=== PATIENT | male | born 1990 | race Caucasian/White ===

== ENCOUNTER 2017-06-16 07:08 | Day surgery (SDC) | payer BC, OTHER ==
--- NOTE | 2017-06-16 07:13 | ER Report ---
History and Physical Time Seen By MD: 07:12 HPI/ROS CHIEF COMPLAINT: Intermittent Fevers, fatigue for several months HISTORY OF PRESENT ILLNESS: Patient is a 27-year-old male here with complaints of intermittent low-grade fevers, persistent fatigue for several months and elevated LFTs and uric acid levels on lab screening completed last week. Patient is concerned as symptoms findings may indicate an underlying process. Patient denies weight loss, chest pain, trouble breathing, abdominal pain, nausea, vomiting, lower extremity edema. he does note a prior sore throat which is improved. Patient is well-appearing on exam and in no acute distress. Patient admits to occasional ETOH use but not on a regular basis. REVIEW OF SYSTEMS: Constitutional: + intermittent fevers and fatigue, no chills. Eyes: No discharge. ENT: + prior history of sore throat. Cardiovascular: No chest pain, no palpitations. Respiratory: No cough, no shortness of breath. Gastrointestinal: No abdominal pain, no vomiting. Genitourinary: No hematuria. Musculoskeletal: No back pain. Skin: No rashes. Neurological: No headache. Allergies: Coded Allergies: No Known Drug Allergies (Verified , 06/16/17) Home Meds Discontinued Reported Medications [None] No Conflict Check, 0 Refills 02/01/10 Hx Alcohol Use: Yes (RARE) Constitutional Vital Sign - Last 24 Hours 06/16/17 06/16/17 06/16/17 06/16/17 07:13 07:14 07:30 08:00 Temp 97.5 Pulse 77 Resp 20 B/P (MAP) 122/68 122/68 (86) 119/73 (88) 110/71 (84) Pulse Ox 99 O2 Delivery Room Air 06/16/17 06/16/17 06/16/17 06/16/17 08:08 08:13 08:30 08:43 Pulse 81 52 68 B/P (MAP) 110/56 (74) Pulse Ox 94 95 93 06/16/17 06/16/17 06/16/17 06/16/17 09:12 09:30 09:43 10:00 Pulse 57 B/P (MAP) 111/65 (80) 111/67 (82) 117/69 (85) Pulse Ox 95 Physical Exam General Appearance: The patient is alert,no signs of toxicity. NAD Eyes: Pupils equal and round no pallor or injection. ENT, Mouth: Mucous membranes are moist. Respiratory: There are no retractions, lungs are clear to auscultation. Cardiovascular: Regular rate and rhythm. Gastrointestinal: Abdomen is soft and non tender, no masses, bowel sounds normal. Neurological: No focal deficits, gait normal Skin: Warm and dry, no rashes. Musculoskeletal: Extremities are nontender, nonswollen and have full range of motion. DIFFERENTIAL DIAGNOSIS: After history and physical exam differential diagnosis was considered for adult fever including but not limited to viral syndromes including mono, urinary tract infection and sepsis. Medical Decision Making Data Points Result Diagram: 06/16/17 0725 06/16/1725 Laboratory Hematology Test 06/16/17 07:25 06/16/17 09:45 06/16/17 10:10 Red Blood Count 5.49 M/uL (4.00-5.60) Mean Corpuscular Volume 86.2 fL (80.0-96.0) Mean Corpuscular Hemoglobin 29.9 pg (26.0-33.0) Mean Corpuscular Hemoglobin Concent 34.7 g/dL (32.0-36.0) Red Cell Distribution Width 12.9 % (11.5-14.5) Mean Platelet Volume 6.9 fL (7.2-11.1) Neutrophils (%) (Auto) 36.8 % (39.4-72.5) Lymphocytes (%) (Auto) 48.2 % (17.6-49.6) Monocytes (%) (Auto) 12.0 % (4.1-12.4) Eosinophils (%) (Auto) 1.9 % (0.4-6.7) Basophils (%) (Auto) 1.1 % (0.3-1.4) Nucleated RBC Relative Count (auto) 0.1 /100WBC Neutrophils # (Auto) 1.6 K/uL (2.0-7.4) Lymphocytes # (Auto) 2.1 K/uL (1.3-3.6) Monocytes # (Auto) 0.5 K/uL (0.3-1.0) Eosinophils # (Auto) 0.1 K/uL (0.0-0.5) Basophils # (Auto) 0.0 K/uL (0.0-0.1) Nucleated RBC Absolute Count (auto) 0.01 K/uL Sodium Level 142 mmol/L (137-145) Potassium Level 4.2 mmol/L (3.5-5.0) Chloride Level 102 mmol/L (98-107) Carbon Dioxide Level 24 mmol/L (22-30) Blood Urea Nitrogen 17 mg/dl (9-21) Creatinine 1.00 mg/dl (0.66-1.25) Glomerular Filtration Rate Calc > 60.0 Random Glucose 95 mg/dl (75-110) Uric Acid 7.2 mg/dl (3.5-8.5) Calcium Level 9.6 mg/dl (8.4-10.2) Total Bilirubin 1.9 mg/dl (0.2-1.3) Aspartate Amino Transf (AST/SGOT) 59 U/L (0-35) Alanine Aminotransferase (ALT/SGPT) 123 U/L (0-56) Alkaline Phosphatase 68 U/L (0-126) Total Protein 8.4 gm/dl (6.3-8.2) Albumin 4.8 g/dl (3.5-5.0) Triglycerides Level 77 mg/dl (0-250) Cholesterol Level 157 mg/dl (75-200) LDL Cholesterol 99 mg/dl VLDL Cholesterol 15 mg/dl HDL Cholesterol 43 mg/dl Percent HDL Cholesterol 27.0 % Cholesterol Ratio (LDL/HDL) 2.30 Cholesterol/HDL Ratio 3.7 Lipase 100 U/L (23-300) Monoscreen Negative (NEGATIVE) Urine Color Straw Urine Clarity Clear Urine pH 7.0 pH (4.8-9.5) Urine Specific [place] 1.044 Urine Protein Negative mg/dL (NEGATIVE) Urine Glucose (UA) Negative mg/dL (NEGATIVE) Urine Ketones Negative mg/dL (NEGATIVE) Urine Blood Negative (NEGATIVE) Urine Nitrite Negative (NEGATIVE) Urine Bilirubin Negative (NEGATIVE) Urine Urobilinogen Negative mg/dL (0.2-1.9) Urine Leukocyte Esterase Negative (NEGATIVE) Urine RBC <1 /HPF (0-2/HPF) Urine WBC None /HPF (0-5/HPF) Urine Squamous Epithelial Cells None /LPF (</=FEW) Urine Bacteria Negative /HPF (NONE-FEW) Urine Mucus None /HPF (NONE-FEW) Chemistry Test 06/16/17 07:25 06/16/17 09:45 5/12/18 10:10 White Blood Count 4.4 k/uL (4.5-11.0) Red Blood Count 5.49 M/uL (4.00-5.60) Hemoglobin 16.4 g/dL (14.0-18.0) Hematocrit 47.3 % (42.0-52.0) Mean Corpuscular Volume 86.2 fL (80.0-96.0) Mean Corpuscular Hemoglobin 29.9 pg (26.0-33.0) Mean Corpuscular Hemoglobin Concent 34.7 g/dL (32.0-36.0) Red Cell Distribution Width 12.9 % (11.5-14.5) Platelet Count 225 K/uL (150-450) Mean Platelet Volume 6.9 fL (7.2-11.1) Neutrophils (%) (Auto) 36.8 % (39.4-72.5) Lymphocytes (%) (Auto) 48.2 % (17.6-49.6) Monocytes (%) (Auto) 12.0 % (4.1-12.4) Eosinophils (%) (Auto) 1.9 % (0.4-6.7) Basophils (%) (Auto) 1.1 % (0.3-1.4) Nucleated RBC Relative Count (auto) 0.1 /100WBC Neutrophils # (Auto) 1.6 K/uL (2.0-7.4) Lymphocytes # (Auto) 2.1 K/uL (1.3-3.6) Monocytes # (Auto) 0.5 K/uL (0.3-1.0) Eosinophils # (Auto) 0.1 K/uL (0.0-0.5) Basophils # (Auto) 0.0 K/uL (0.0-0.1) Nucleated RBC Absolute Count (auto) 0.01 K/uL Glomerular Filtration Rate Calc > 60.0 Uric Acid 7.2 mg/dl (3.5-8.5) Calcium Level 9.6 mg/dl (8.4-10.2) Total Bilirubin 1.9 mg/dl (0.2-1.3) Aspartate Amino Transf (AST/SGOT) 59 U/L (0-35) Alanine Aminotransferase (ALT/SGPT) 123 U/L (0-56) Alkaline Phosphatase 68 U/L (0-126) Total Protein 8.4 gm/dl (6.3-8.2) Albumin 4.8 g/dl (3.5-5.0) Triglycerides Level 77 mg/dl (0-250) Cholesterol Level 157 mg/dl (75-200) LDL Cholesterol 99 mg/dl VLDL Cholesterol 15 mg/dl HDL Cholesterol 43 mg/dl Percent HDL Cholesterol 27.0 % Cholesterol Ratio (LDL/HDL) 2.30 Cholesterol/HDL Ratio 3.7 Lipase 100 U/L (23-300) Monoscreen Negative (NEGATIVE) Urine Color Straw Urine Clarity Clear Urine pH 7.0 pH (4.8-9.5) Urine Specific [place] 1.044 Urine Protein Negative mg/dL (NEGATIVE) Urine Glucose (UA) Negative mg/dL (NEGATIVE) Urine Ketones Negative mg/dL (NEGATIVE) Urine Blood Negative (NEGATIVE) Urine Nitrite Negative (NEGATIVE) Urine Bilirubin Negative (NEGATIVE) Urine Urobilinogen Negative mg/dL (0.2-1.9) Urine Leukocyte Esterase Negative (NEGATIVE) Urine RBC <1 /HPF (0-2/HPF) Urine WBC None /HPF (0-5/HPF) Urine Squamous Epithelial Cells None /LPF (</=FEW) Urine Bacteria Negative /HPF (NONE-FEW) Urine Mucus None /HPF (NONE-FEW) Urinalysis Test 06/16/17 10:10 Urine Color Straw Urine Clarity Clear Urine pH 7.0 pH (4.8-9.5) Urine Specific [place] 1.044 Urine Protein Negative mg/dL (NEGATIVE) Urine Glucose (UA) Negative mg/dL (NEGATIVE) Urine Ketones Negative mg/dL (NEGATIVE) Urine Blood Negative (NEGATIVE) Urine Nitrite Negative (NEGATIVE) Urine Bilirubin Negative (NEGATIVE) Urine Urobilinogen Negative mg/dL (0.2-1.9) Urine Leukocyte Esterase Negative (NEGATIVE) Urine RBC <1 /HPF (0-2/HPF) Urine WBC None /HPF (0-5/HPF) Urine Squamous Epithelial Cells None /LPF (</=FEW) Urine Bacteria Negative /HPF (NONE-FEW) Urine Mucus None /HPF (NONE-FEW) Microbiology Microbiology Date/Time Source Procedure Growth Status 06/16/17 07:25 Blood Blood Culture - Preliminary NO GROWTH SO FAR, SET LATE. REINCUBATED Resulted EKG/Imaging Imaging GALLBLADDER HISTORY: abnormal liver enzymes COMPARISON: None. FINDINGS: Gallbladder: No shadowing gallstones. No gallbladder wall thickening. Negative sonographic Sanchez's sign.. Bile ducts: There is no biliary ductal dilation with the CBD measuring 2 mm. Liver: Negative. Pancreas: Negative. Right kidney: Negative. Upper abdominal aorta and IVC: Patent. Ascites: None visualized. Other findings: None significant IMPRESSION: 1. Normal ABDOMEN/PELVIS WITH CONTRAST HISTORY: Abdominal pain TECHNIQUE: Axial images were obtained through the abdomen and pelvis with intravenous contrast . One of the following dose optimization techniques was utilized in the performance of this exam: automated exposure control; adjustment of the mA and/or kv according to patient size; or use of iterative reconstruction technique. Specific details can be referenced in the facility's radiology CT exam operational policy. CONTRAST: 100 cc of Isovue-370 COMPARISON: None. FINDINGS: Visualized lung bases: Negative. Hepatobiliary: Negative. Spleen: Negative. Adrenals: Negative. Pancreas: Negative. Kidneys/ureters/bladder: Negative. Bowel/peritoneum/mesentery: Small appendicolith. Distal to the appendicolith the appendix is dilated measuring 8 mm with mild enhancement of the wall and minimal stranding of adjacent fat consistent with appendicitis. No free air, bowel obstruction or abscess. Vessels: Negative. Lymph nodes: Negative. Pelvic genitourinary: Negative. Bones/body wall: Negative. Other findings: None significant IMPRESSION: 1. Distal appendicolith with mild dilatation of the tip of the appendix, mild enhancement of the wall and mild stranding of adjacent fat concerning for uncomplicated appendicitis. ED Course/Re-evaluation ED Course Patient is a 27-year-old male here with complaints of fever and fatigue for the past several months with aberrant lab findings last week prompting evaluation. She was well-appearing on exam and in no acute distress. Asymptomatic recently loss, PO intolerance, dysuria, LE edema, rashes. Repeat labs today showed mild transaminitis. Patient does admit to occasional ETOH use but not to the level that would likely cause this transaminitis. RUQ US showed no acute findings. Blood culture pending. LFTs seem to be improving since last week. Patient's clinical manifestations do not seem congruent with hepatitis as the LFTs are not markedly elevated, patient does not fit the clinical syndrome pattern expected with hepatitis A. Hepatitis B and C are much lower on the differential based on patient's history and clinical symptomatology. Hepatitis send out panels were collected and sent. CT AP showed findings concerning for appendicolith with surrounding inflammation concerning for uncomplicated appendicitis. I discussed the patent with Dr. Christy Maya from Surgery who evaluated the patient and subsequently admitted for further treatment. Patient remained HD stable during course. Transaminitis to be followed up in the outpatient setting. . Decision to Disposition Date: June 16, 2017 Decision to Disposition Time: 10:49 Depart Departure Latest Vital Signs Vital Signs Date Time Temp Pulse Resp B/P (MAP) Pulse Ox O2 Delivery O2 Flow Rate FiO2 06/16/17 10:00 117/69 (85) 06/16/17 09:43 57 95 06/16/17 07:13 97.5 20 Room Air Impression: Primary Impression: Appendicitis Additional Impressions: Transaminitis Fatigue Condition: Condition Unchanged Disposition: ADMIT FROM ER TO OR Referrals: WALESKA STRAUSS MD (PCP) New Scripts No Active Prescriptions or Reported Meds Patient Instructions: Fatigue (ED), Fever in Adults (ED) Additional Instructions: You were evaluated today for fevers and fatigue which has been present for the past several months. Your liver enzyme tests seem to be improving. Your ultrasound showed no acute findings. CT imaging showed no acute masses or signs of infection. Please return promptly if you develop worsening fevers, worsening fatigue, nausea, vomiting, abdominal pain, yellow skin, diffuse itching. Please follow-up with your family doctor next week. You may need to be evaluated by gastroenterology for persistent elevated liver enzymes. Problem Qualifiers Primary Impression: Appendicitis Appendicitis type: acute appendicitis MARLENY RATLIFF DO June 16, 2017 07:13
[2017-06-16 07:44] LABS: PLATELET COUNT, AUTOMATED 225 K/uL (150-450)
[2017-06-16] MEDS ORDERED: IOPAMIDOL 76% 100 ML INFUS BTL 100 ML ONE (08:59)
[2017-06-16] MEDS ORDERED: NS 0.9% 150 ML BAG 150 ML ONE (08:59)
--- NOTE | 2017-06-16 09:15 | RADIOLOGY IMAGING REPORT ---
FACILITY: [facility] PATIENT NAME: Prieto Zamora : 1990 MR: [id number] V: [id number] EXAM DATE: ORDERING PHYSICIAN: MARLENY RATLIFF TECHNOLOGIST: Location: [facility] - [place] Patient: Prieto Zamora : 1990 Visit/Account:[id number] Date of Sevice: 06/16/2017 GALLBLADDER HISTORY: abnormal liver enzymes COMPARISON: None. FINDINGS: Gallbladder: No shadowing gallstones. No gallbladder wall thickening. Negative sonographic Sanchez's s ign.. Bile ducts: There is no biliary ductal dilation with the CBD measuring 2 mm. Liver: Negative. Pancreas: Negative. Right kidney: Negative. Upper abdominal aorta and IVC: Patent. Ascites: None visualized. Other findings: None significant IMPRESSION: 1. Normal Report Dictated By: Berto Thomas MD at 06/16/2017 9:09 AM Report E-Signed By: Berto Thomas MD at 06/16/2017 9:11 AM WSN:[id number]
--- NOTE | 2017-06-16 09:33 | RADIOLOGY IMAGING REPORT ---
[place] [facility] [place] Prieto Zamora : 1990 MR: [id number] V: [id number] EXAM DATE: ORDERING PHYSICIAN: MARLENY RATLIFF TECHNOLOGIST: Location: [facility] - [place] Patient: Prieto Zamora : 1990 Visit/Account:[id number] Date of Sevice: 06/16/2017 ABDOMEN/PELVIS WITH CONTRAST HISTORY: Abdominal pain TECHNIQUE: Axial images were obtained through the abdomen and pelvis with intravenous contrast . One of the following dose optimization techniques was utilized in the performance of this exam: automate d exposure control; adjustment of the mA and/or kv according to patient size; or use of iterative rec onstruction technique. Specific details can be referenced in the facility's radiology CT exam operati onal policy. CONTRAST: 100 cc of Isovue-370 COMPARISON: None. FINDINGS: Visualized lung bases: Negative. Hepatobiliary: Negative. Spleen: Negative. Adrenals: Negative. Pancreas: Negative. Kidneys/ureters/bladder: Negative. Bowel/peritoneum/mesentery: Small appendicolith. Distal to the appendicolith the appendix is dilated measuring 8 mm with mild enhancement of the wall and minimal stranding of adjacent fat consistent wi th appendicitis. No free air, bowel obstruction or abscess. Vessels: Negative. Lymph nodes: Negative. Pelvic genitourinary: Negative. Bones/body wall: Negative. Other findings: None significant IMPRESSION: 1. Distal appendicolith with mild dilatation of the tip of the appendix, mild enhancement of the wall and mild stranding of adjacent fat concerning for uncomplicated appendicitis. Results were called to MARLENY RATLIFF at 06/16/2017 9:22 AM. Report Dictated By: Berto Thomas MD at 06/16/2017 9:15 AM Report E-Signed By: Berto Thomas MD at 06/16/2017 9:28 AM WSN:[id number]
[2017-06-16] MEDS ORDERED: PIPERACILLIN/TAZO*3.375GM VIAL 3.375 GM in NS(*) 0.9% 100 ML ADDVANT BAG 100 ML IVPB ONE (10:15)
[2017-06-16] MEDS ORDERED: NORMOSOL R SOLN(*) 1000 ML BAG 1,000 ML IV ONE (10:20)
[2017-06-16] MEDS ORDERED: FAMOTIDINE(*) 20MG/50ML PREMIX 50 ML IVPB ONE (10:20)
[2017-06-16] MEDS ORDERED: MIDAZOLAM 2 MG/2 ML VIAL ONE (10:30)
--- NOTE | 2017-06-16 10:31 | Gen Surgery History & Physical ---
History of Present Illness Chief Complaint Fatigue, intermittent fevers History of Present Illness 27 year old otherwise healthy male who reports onset of intermittent headaches with associated fatigue since taking a trip to [place] about a month ago. He has also had some fevers at home measuring between 100-101F. Denies any GI symptoms, no abdominal pain, no vomiting, occasional nausea with bad headache. Normal bowel movements, no blood, no diarrhea. Denies camping or drinking non- potable water. He had bloodwork done at a recent health fair, and had incidentally noted elevation in his transaminases. Denies jaundice. No history of IBD. No previous surgeries. No joint/muscle pain. Works out regularly. History Unable To Obtain Past Medical: No known medical problems Problems: Home Meds Discontinued Reported Medications [None] No Conflict Check, 0 Refills 02/01/10 Allergies: Coded Allergies: No Known Drug Allergies (Verified , 06/16/17) Review of Systems Constitutional: Fever, No Weight Loss, No Chills, No Night Sweats Neurological: Other (Headache) Eyes: No Vision Change Cardiovascular: No Chest Pain, No Palpitations Respiratory: No Shortness of Breath Gastrointestinal: Nausea (With headache), No Vomiting, No Diarrhea, No Constipation, No Early Satiety, No Hematochezia, No Melena, No Abdominal Pain Genitourinary: No Dysuria Musculoskeletal: No Pain Exam General Appearance: Alert, Awake, No Acute Distress, Afebrile Neuro: No Gross deficits Eyes: PERRLA ENT: Moist Mucous Membranes Cardiovascular: Regular Rate and Rhythm Respiratory: No Respiratory Distress Chest: No Tenderness GI: Abd Soft and Non-Tender, Other (No rebound or guarding) Psych: Alert & Oriented X3, Appropriate Mood & Affect Medical Decision Making Data Points Result Diagram: 06/16/17 0725 06/16/17 0725 EKG / Imaging Imaging Abdominal ultrasound: normal CT Abd/Pelvis: appendicolith noted in the distal appendix with early evidence of inflammatory changes and dilation to 8mm Pre-Admit Course Medical Record Review: Yes Assessment and Plan Problems: (1) Appendicitis Onset Date: ~ 06/16/2017 Status: Acute Assessment & Plan: 27year old male with ~one month history of fatigue, fever, and headache. Recent laboratory values indicate transaminitis. 1. Transaminitis - LFT's downtrending from previous values. Abd Ultrasound normal. Would recommend continued outpatient monitoring of LFT's and consider consultation with GI. 2. Appendicolith/Early appendicitis - I have recommended laparoscopic appendectomy. The risks, benefits, and alternatives of the procedure have been explained to the patient and informed consent obtained. Patient understands potential for normal appendix, injury to surrounding structures, bleeding and infection. Zosyn system administration manager to OR. Last ate at 10pm. All questions answered. Condition Stable Time Spent: > 30 min Venous Thromboembolism VTE Risk Patient's VTE Risk: Low Antithrombotics Is Pt On Any Antithrombotics?: No Problem Qualifiers (1) Appendicitis: Appendicitis type: acute appendicitis NADINE ROWELL MD June 16, 2017 09:47
[2017-06-16] MEDS ORDERED: fentaNYL CITR 250 MCG/5 ML AMP ONE (10:33)
[2017-06-16] MEDS ORDERED: LIDOCAINE MPF 1% 5 ML VIAL ONE (10:35)
[2017-06-16] MEDS ORDERED: ONDANSETRON 4 MG/2 ML VIAL ONE (10:35)
[2017-06-16] MEDS ORDERED: DEXAMETHASONE SOD PHOS 10MG/ML ONE (10:35)
[2017-06-16] MEDS ORDERED: PROPOFOL EMUL(*) 10MG/ML 20 ML 80 ML ONE (10:35)
[2017-06-16] MEDS ORDERED: REMIFENTANIL HCL 1 MG VIAL ONE (10:36)
[2017-06-16] MEDS ORDERED: SUGAMMADEX SOD 200 MG/2 ML SDV ONE (11:00)
--- NOTE | 2017-06-16 11:40 | Post Operative Note ---
Operative Note - ENT Operative Day Date: June 16, 2017 Time: 11:39 Physicians Surgeon: Christy Rowell MD Anesthesia: General endotracheal Diagnosis Pre-Op Diagnosis: Acute appendicitis Post-Op Diagnosis: Same Procedure Findings: Mildly injected distal appendix Procedure(s): Laparoscopic appendectomy Specimen Removed:(Maybe N/A): Appendix Complications: None apparent Fluids Estimated Blood Loss: <5mL CHRISTY ROWELL MD June 16, 2017 11:40
--- NOTE | 2017-06-16 11:45 | Short(Outpt) Discharge Summary ---
Discharge Summary Reason for Hosp/Final Diag: (1) Appendicitis Onset Date: ~ 06/16/2017 Status: Acute Hospital Course & Plan: 27year old male with ~one month history of fatigue, fever, and headache. Recent laboratory values indicate transaminitis. 1. Transaminitis - LFT's downtrending from previous values. Abd Ultrasound normal. Would recommend continued outpatient monitoring of LFT's and consider consultation with GI. 2. Appendicolith/Early appendicitis - I have recommended laparoscopic appendectomy. The risks, benefits, and alternatives of the procedure have been explained to the patient and informed consent obtained. Patient understands potential for normal appendix, injury to surrounding structures, bleeding and infection. Zosyn options trader to OR. Last ate at 10pm. All questions answered. Post op: Patient recovered in PACU. Stable for discharge to home. Departure Discharge to: Home Discharge Instructions Home Meds Discontinued Reported Medications [None] No Conflict Check, 0 Refills 02/01/10 Diet: Regular Activity: No Heavy Lifting Special Instructions: No heavy lifting of anything more than 20lb for the next 4-6 weeks. Copies to: WALESKA GONZALEZ MD Problem Qualifiers (1) Appendicitis: Appendicitis type: acute appendicitis NADINE ROWELL MD June 16, 2017 11:45
[2017-06-16] MEDS ORDERED: DOCU-416 PO (11:48)
[2017-06-16] MEDS ORDERED: OXYC-865 PO (11:48)
[2017-06-16 12:52] VITALS: BP 116/66
[2017-06-16 12:54] VITALS: BP 112/67
--- NOTE | 2017-06-16 13:24 | OPERATIVE REPORT 1 ---
EVENT DATE: June 16, 2017 SURGEON: Christy Maya MD ANESTHESIOLOGIST: Noel Allred MD ANESTHESIA: General endotracheal tube. PREOPERATIVE DIAGNOSIS Acute appendicitis. POSTOPERATIVE DIAGNOSIS Acute appendicitis. PROCEDURE PERFORMED Laparoscopic appendectomy. ESTIMATED BLOOD LOSS Less than 5 mL. SPECIMENS Appendix. COMPLICATIONS None apparent. INDICATIONS FOR PROCEDURE The patient is a 27-year-old male with a one-month history of intermittent fevers and fatigue with associated headache. He presented to the Emergency Department today secondary to persistent symptoms and underwent workup which consisted of CT imaging that demonstrated a fecalith in his distal appendix with associated mild inflammatory changes. I discussed with the patient that while I did not feel that symptoms he had been experiencing over the last month were necessarily related to his appendix, I did believed that laparoscopic appendectomy was indicated to prevent progression of the inflammation and/or the potential for perforated appendicitis. The risks, benefits, and alternatives for the procedure were explained to the patient, and informed consent was obtained. DETAILS OF THE PROCEDURE Patient was brought to the operating room. He was laid in the supine position. Bilateral sequential compression devices were placed on his lower extremities , and general endotracheal tube anesthesia was induced without complication. The patient was then positioned, prepped, and draped in the usual sterile fashion. A timeout was performed confirming the patient, the procedure, and the administration of preoperative antibiotics with Zosyn IV. Operation commenced with gaining access to the patient's abdomen in the left upper quadrant using a Veress needle. After a positive saline drop test, abdomen was insufflated to 15 mmHg without complication. I then inserted a 5 mm Optiview trocar in the supraumbilical position. Two additional trocars were placed, a 12 mm trocar in the left lower quadrant and a 5 mm trocar in the suprapubic region. We then positioned the patient head down and right side up and were able to identify the appendix, which was noted to have some evidence of distal inflammation and edema. There was also an enlarged lymph node apparent within the mesoappendix. A window was created at the base of the appendix at its exit from the cecum, and the appendix was transected using a single firing of the vascular load of the surgical stapler. The mesoappendix was then taken using a Harmonic scalpel. The appendiceal stump was inspected and noted to be hemostatic. The appendix was placed in an Endo Catch bag and removed through the 12 mm trocar site. This was then closed using a Ariel- Thomasen closure device and an 0 Vicryl suture. Abdomen was then desufflated, and the remaining trocars were removed. The entirety of the abdominal cavity, of note, was inspected prior to desufflation of the abdomen, and there were no overt abnormalities appreciated. The remaining incisions were then closed using interrupted 3-0 Vicryl sutures. Dermabond was applied to the dermis. The patient was then extubated and transported to PACU in stable condition. MISAEL
== END 2017-06-16 12:45 | disposition home or self-care (01) ==
LOC: ER 07:14 → OR 10:10
PROVIDERS: ATTEND Surgery
DX: K37 Unspecified appendicitis (principal); R79.89 Other specified abnormal findings of blood chemistry; R53.83 Other fatigue
CPT/HCPCS: 36415; 44970; 74177; 76705; 81001; 82330; 83690; 84550; 85025; 86308; 86706; 86708; 86709; 86803; 87040; 88304; 99285; J1100; J2001; J2250; J2405; J2543; J2704; J3010; J3490; J7050; Q9967; 82040; 82247; 82310; 82374; 82435; 82465; 82565; 82947; 83718; 84075; 84132; 84155; 84295; 84450; 84460; 84478; 84520